=== PATIENT | female | born 1960 | race Caucasian/White ===

== ENCOUNTER 2017-07-19 12:38 | Emergency (ER) | payer MEDICAID ==
[~2017-07-19] VITALS: Ht 162.6 cm; Wt 72.0 kg
[2017-07-19 12:43] VITALS: BP 102/70
[2017-07-19] MEDS ORDERED: DIAZEPAM 5 MG TABLET ONE (13:57)
[2017-07-19] MEDS ORDERED: KETOROLAC 30 MG/1 ML ONE (13:58)
[2017-07-19] MEDS ORDERED: DIAZEPAM 5 MG TABLET PO ONE (14:00)
[2017-07-19] MEDS ORDERED: KETOROLAC 30 MG/1 ML IM ONE (14:00)
== END 2017-07-19 14:25 | disposition home or self-care (01) ==
LOC: ED 14:15
DX: M54.2 Cervicalgia (principal); F17.200 Nicotine dependence, unspecified, uncomplicated
CPT/HCPCS: 72125; 96372; 99284; J1885

== ENCOUNTER 2017-07-28 16:04 | Emergency (ER) | payer MEDICAID ==
[~2017-07-28] VITALS: Ht 162.6 cm; Wt 74.6 kg
[2017-07-28 16:11] VITALS: BP 100/67
[2017-07-28] MEDS ORDERED: CYCLOBENZAPRINE 10 MG TABLET PO STA (16:52)
[2017-07-28] MEDS ORDERED: HYDROcodone/APAP 5/325 TABLET PO STA (16:52)
[2017-07-28] MEDS ORDERED: CYCLOBENZAPRINE 10 MG TABLET ONE (16:57)
[2017-07-28] MEDS ORDERED: HYDROcodone/APAP 5/325 TABLET ONE (16:57)
[2017-07-28] MEDS ORDERED: IBUPROFEN 200 MG TABLET ONE (16:57)
[2017-07-28] MEDS ORDERED: IBUPROFEN 200 MG TABLET PO ONE (17:00)
== END 2017-07-28 17:31 | disposition home or self-care (01) ==
LOC: ED 17:22
DX: G89.29 Other chronic pain (principal); M54.12 Radiculopathy, cervical region; F17.200 Nicotine dependence, unspecified, uncomplicated
CPT/HCPCS: 93005; 99284